=== PATIENT | female | born 1975 | race Two or more races ===

== ENCOUNTER 2020-01-28 06:57 | Day surgery (SDC) | payer OTHER | END 2020-01-28 10:30 | disposition home or self-care (01) | LOC: AMB-ENDOS 06:57 | PROVIDERS: ATTEND Surgery | DX: K62.89 Other specified diseases of anus and rectum (principal); K64.8 Other hemorrhoids; Z12.11 Encounter for screening for malignant neoplasm of colon; Z20.828 Contact with and (suspected) exposure to other viral communicable diseases ==

== ENCOUNTER 2023-04-29 11:19 | Outpatient (CLI) | payer OTHER | END 2023-04-29 11:24 | disposition home or self-care (01) | LOC: SONOGRAMA 11:19 | PROVIDERS: ATTEND Pathology Anatomic Pathology | DX: D34 Benign neoplasm of thyroid gland (principal); E07.89 Other specified disorders of thyroid; E04.1 Nontoxic single thyroid nodule ==